=== PATIENT | male | born 1945 | race Hispanic/Latino ===

== ENCOUNTER 2016-08-26 22:22 | Emergency (ER) | payer OTHER, MEDICARE ==
[2016-08-26 22:22] VITALS: BMI 31.9
[2016-08-26 23:21] LABS: BASO % 0.6 % (0.0-2.0); EOS # 0.2 K/uL (0.0-0.7); EOS % 2.8 % (0.0-4.0); HEMATOCRIT 39.8 % (35.0-51.0); LYMPH # 1.6 K/uL (1.0-4.3); LYMPH % 25.4 % (20.0-40.0); MEAN CELL VOLUME 91.4 fL (80.0-94.0); MEAN CORPUSCULAR HEMOGLOBIN 30.3 pg (27.0-31.0); MEAN CORPUSCULAR HGB CONC 33.1 g/dL (33.0-37.0); MEAN PLATELET VOLUME 7.2 fL (7.2-11.7); MONO # 0.7 K/uL (0.0-0.8); MONO % 11.8 % (0.0-10.0); RED CELL DISTRIBUTION WIDTH 12.6 % (11.5-14.5); WHITE BLOOD COUNT 6.3 K/uL (4.8-10.8)
[2016-08-26 23:27] LABS: CHLORIDE 98 mmol/L (98-107)
[2016-08-26 23:28] LABS: SODIUM 140 mmol/L (132-148)
[2016-08-26 23:30] LABS: ALB/GLOB RATIO 1.4 (1.0-2.1); ALKALINE PHOSPHATASE 63 U/L (38-126); ALT/SGPT 24 U/L (21-72); AST/SGOT 21 U/L (17-59); BILIRUBIN,TOTAL 0.3 mg/dL (0.2-1.3); BLOOD UREA NITROGEN 12 mg/dL (9-20); CALCIUM 8.6 mg/dl (8.6-10.4); CARBON DIOXIDE 29 mmol/L (22-30); GFR AFRICAN-AMERICAN > 60; GLUCOSE,RANDOM 98 mg/dL (75-110); TOTAL PROTEIN 6.8 g/dL (6.3-8.3)
--- NOTE | 2016-08-27 01:03 | C.PDOC ---
History Of Present Illness 71 year old patient presents to the ED complaining of shortness of breath. Patient states he woke up from his sleep, with headache and feeling short of breath and unable to breath through his nose. His also notes his voice is deeper than usual. By the time the patient arrived to the ED, the symptoms resolved. Patient denies fever, chest pain or cough. Patient's reports patient has an extensive psych history and he frequently has nightmares that make him combative when he wakes up. Time Seen by Provider: 08/26/16 23:11 Chief Complaint (Nursing): Shortness Of Breath History Per: Patient History/Exam Limitations: no limitations Onset/Duration Of Symptoms: Hrs (tonight) Current Symptoms Are (Timing): Still Present Exacerbating Factor(s): Laying Flat Severity: Mild Recent travel outside of the [place]: No Past Medical History Reviewed: Historical Data, Nursing Documentation, Vital Signs Vital Signs: Last Vital Signs Temp 97.7 F 08/27/16 01:08 Pulse 53 L 08/27/16 01:08 Resp 12 08/27/16 01:08 BP 149/89 08/27/16 01:08 Pulse Ox 97 08/27/16 02:28 - Medical History PMH: Anxiety, Arthritis (LBP), Benign Prostatic Hyperplasia, COPD, Depression, Emphysema, HTN, Hypercholesterolemia, Kidney Stones, Paranoia, Pneumonia, Post Traumatic Stress Disorder, Chronic Kidney Disease, Schizophrenia Surgical History: Coronary Stent, Endoscopy - [facility] Procedures CENTRAL VENOUS CATHETER PLACEMENT WITH GUIDANCE (11/30/14) COLONOSCOPY (12/02/12) DX ULTRASOUND-HEART (07/03/14) INDIVID PSYCHOTHERAP NEC (08/12/14) INSERT INDWELLING CATH (11/08/14) OTHER GROUP THERAPY (08/12/14) PSYCHIAT DRUG THERAP NEC (08/12/14) Family History: States: Unknown Family Hx - Social History Hx Tobacco Use: No Hx Alcohol Use: No Hx Substance Use: No - Immunization History Hx Tetanus Toxoid Vaccination: Yes Hx Influenza Vaccination: Yes (02/2016) Hx Pneumococcal Vaccination: Yes (2014) Review Of Systems Except As Marked, All Systems Reviewed And Found Negative. Constitutional: Negative for: Fever Cardiovascular: Negative for: Chest Pain Respiratory: Positive for: Shortness of Breath. Negative for: Cough Physical Exam - Physical Exam Appears: Non-toxic, No Acute Distress Skin: Warm, Dry Head: Atraumatic, Normacephalic Eye(s): bilateral: Normal Inspection, PERRL, EOMI Nose: Normal Oral Mucosa: Moist Neck: Normal ROM, Supple Chest: Symmetrical Cardiovascular: Rhythm Regular Respiratory: Normal Breath Sounds, No Rales, No Rhonchi, No Wheezing Gastrointestinal/Abdominal: Soft, No Tenderness Back: Normal Inspection, No CVA Tenderness Extremity: Normal ROM Neurological/Psych: Oriented x3, Normal Speech, Normal Cognition Gait: Steady ED Course And Treatment - Laboratory Results Result Diagrams: 08/26/16 23:17 08/26/16 23:17 ECG: Interpreted By Me, Viewed By Tn ECG Rhythm: Sinus Rhythm, 1st Degree HB Rate From EC (bpm) O2 Sat by Pulse Oximetry: 97 (RA) Pulse Ox Interpretation: Normal - Radiology CXR: Interpreted by Me, Viewed By Tn CXR Interpretation: Yes: No Acute Disease - CT Scan/US Head CT Other Rad Studies (CT/US): Read By Radiologist (Ashley Ireland MD), Radiology Report Reviewed CT/US Interpretation: EXAM: CT Head Without Intravenous Contrast. CLINICAL HISTORY: 71 years old, male; Pain; Headache and other: R/O bleed code stroke. TECHNIQUE: Axial computed tomography images of the head/brain without intravenous contrast. This CT exam. was performed using one or more of the following dose reduction techniques: automated exposure. control, adjustment of the mA and/or kV according to patient size, and/or use of iterative. reconstruction technique. COMPARISON: None. FINDINGS: Brain: No acute intracranial hemorrhage. Age-appropriate periventricular white matter disease. No. edema. Ventricles: Age-appropriate ventriculomegaly. Bones: No acute displaced fracture. Sinuses: Unremarkable as visualized. No acute sinusitis. Mastoid air cells: Unremarkable as visualized. No mastoid effusion. IMPRESSION : No acute intracranial hemorrhage, or suspicious mass effect. Progress Note: Plan: -Labs. -Head CT. -EKG. -Chest XR Medical Decision Making Medical Decision Making: Pt remained stable in the ED PaO2 normal, lung clear no indication of PE Results discussed with pt and Plan dc home Disposition - Disposition Referrals: Nicolasa Gonzalez MD [Staff Provider] - Disposition: HOME/ ROUTINE Disposition Time: 01:02 Condition: GOOD Additional Instructions: Take all usual meds Follow up with dr Gonzalez Instructions: Dyspnea (ED) - Clinical Impression Clinical Impression: Dyspnea, Headache - Scribe Statement The provider has reviewed the documentation as recorded by the Scribe Marcia Call Provider Attestation: All medical record entries made by the Benitoibe were at my direction and personally dictated by me. I have reviewed the chart and agree that the record accurately reflects my personal performance of the history, physical exam, medical decision making, and the department course for this patient. I have also personally directed, reviewed, and agree with the discharge instructions and disposition.
[2016-08-27 01:15] VITALS: BP 149/89; PULSE 53; RESP 12; TEMP 97.7; O2SAT 97
--- NOTE | 2016-08-27 08:36 | CT ---
PROCEDURE: CT HEAD WITHOUT CONTRAST. HISTORY: code stroke COMPARISON: Comparison is made to the previous study dated 07/04/2014 TECHNIQUE: Axial computed tomography images were obtained through the head/brain without intravenous contrast. Radiation dose: Total exam DLP = 856.0 mGy-cm. This CT exam was performed using one or more of the following dose reduction techniques: Automated exposure control, adjustment of the mA and/or kV according to patient size, and/or use of iterative reconstruction technique. FINDINGS: HEMORRHAGE: No intracranial hemorrhage. BRAIN: No mass effect or edema. No atrophy or chronic microvascular ischemic changes. VENTRICLES: Unremarkable. No hydrocephalus. CALVARIUM: Unremarkable. PARANASAL SINUSES: Unremarkable as visualized. No significant inflammatory changes. MASTOID AIR CELLS: Unremarkable as visualized. No inflammatory changes. OTHER FINDINGS: None. IMPRESSION: No evidence of acute intracranial hemorrhage intracranial collection mass effect or midline shift. No CT evidence of acute territorial infarct. Preliminary report was submitted by [facility].
--- NOTE | 2016-08-27 12:09 | RAD ---
HISTORY: code stroke COMPARISON: Comparison is made to the previous study dated 07/19/2016 FINDINGS: LUNGS: No active pulmonary disease. PLEURA: No significant pleural effusion identified, no pneumothorax apparent. CARDIOVASCULAR: Normal. OSSEOUS STRUCTURES: No significant abnormalities. VISUALIZED UPPER ABDOMEN: Normal. OTHER FINDINGS: None. IMPRESSION: No active disease.
--- NOTE | 2016-08-27 18:40 | CARD ---
APPROVED REPORT EKG Measurement Heart [id number] <Conclusion> Sinus rhythm with 1st degree AV block Prolonged QT Abnormal ECG
== END 2016-08-27 01:23 | disposition home or self-care (01) ==
LOC: C.ER 22:22
DX: R06.00 Dyspnea, unspecified (principal)

== ENCOUNTER 2017-01-26 12:02 | Emergency (ER) | payer OTHER, MEDICARE ==
[2017-01-26 12:03] VITALS: BMI 31.9
[2017-01-26 12:07] VITALS: TEMP 97.5; O2SAT 96
[2017-01-26] MEDS ORDERED: Sodium Chloride 0.9% 1,000 ML IV ONE (12:27)
[2017-01-26] MEDS ORDERED: Sodium Chloride 0.9% 1,000 ML ONE (12:41)
[2017-01-26 12:44] LABS: BASO % 0.7 % (0.0-2.0); EOS # 0.2 K/uL (0.0-0.7); EOS % 2.4 % (0.0-4.0); HEMATOCRIT 38.5 % (35.0-51.0); LYMPH # 1.6 K/uL (1.0-4.3); LYMPH % 24.7 % (20.0-40.0); MEAN CELL VOLUME 91.2 fL (80.0-94.0); MEAN CORPUSCULAR HEMOGLOBIN 30.9 pg (27.0-31.0); MEAN CORPUSCULAR HGB CONC 33.9 g/dL (33.0-37.0); MEAN PLATELET VOLUME 7.3 fL (7.2-11.7); MONO # 0.7 K/uL (0.0-0.8); MONO % 10.2 % (0.0-10.0); RED CELL DISTRIBUTION WIDTH 12.7 % (11.5-14.5); WHITE BLOOD COUNT 6.5 K/uL (4.8-10.8)
[2017-01-26 12:54] LABS: ALB/GLOB RATIO 1.1 (1.0-2.1); ALKALINE PHOSPHATASE 72 U/L (38-126); ALT/SGPT 25 U/L (21-72); AST/SGOT 18 U/L (17-59); BILIRUBIN,TOTAL 0.5 mg/dL (0.2-1.3); BLOOD UREA NITROGEN 11 mg/dL (9-20); CARBON DIOXIDE 31 mmol/L (22-30); CHLORIDE 99 mmol/L (98-107); GFR AFRICAN-AMERICAN > 60; GLUCOSE,RANDOM 110 mg/dL (75-110); MAGNESIUM 1.9 mg/dL (1.6-2.3); POTASSIUM 3.8 mmol/L (3.6-5.2); SODIUM 141 mmol/L (132-148); TOTAL PROTEIN 6.8 g/dL (6.3-8.3)
[2017-01-26 13:43] LABS: RBC URINE 1 /hpf (0-3); URINE BILIRUBIN NEGATIVE (NEGATIVE); URINE BLOOD NEGATIVE (NEGATIVE); URINE COLOR Yellow (YELLOW); URINE GLUCOSE (UA) NORMAL (Normal); URINE KETONE NEGATIVE (NEGATIVE); URINE LEUKOCYTE ESTERASE NEG Leu/uL (Negative); URINE PROTEIN NEGATIVE (NEGATIVE); URINE UROBILINOGEN NORMAL mg/dL (0.2-1.0); WBC URINE < 1 /hpf (0-5)
--- NOTE | 2017-01-26 14:15 | C.PDOC ---
Time Seen by Provider: 01/26/17 12:17 Chief Complaint (Nursing): Abdominal Pain History Per: Patient Onset/Duration Of Symptoms: Days (about 2 weeks), Intermittent Episodes Current Symptoms Are (Timing): Still Present Severity: Moderate Location Of Pain/Discomfort: Epigastric Quality Of Discomfort: Unable To Describe, Burning, "Pain" Exacerbating Factors: Food Alleviating Factors: None Additional History Per: Prior Records Past Medical History Reviewed: Historical Data, Nursing Documentation, Vital Signs Vital Signs: Last Vital Signs Temp 97.5 F L 01/26/17 12:05 Pulse 58 L 01/26/17 12:05 Resp 18 01/26/17 12:05 BP 152/76 H 01/26/17 12:05 Pulse Ox 96 01/26/17 12:05 - Medical History PMH: Anxiety, Arthritis (LBP), Benign Prostatic Hyperplasia, COPD, Depression, Emphysema, HTN, Hypercholesterolemia, Kidney Stones, Paranoia, Pneumonia, Post Traumatic Stress Disorder, Chronic Kidney Disease, Schizophrenia Surgical History: Coronary Stent, Endoscopy - [facility] Procedures CENTRAL VENOUS CATHETER PLACEMENT WITH GUIDANCE (11/30/14) COLONOSCOPY (12/02/12) DX ULTRASOUND-HEART (07/03/14) INDIVID PSYCHOTHERAP NEC (08/12/14) INSERT INDWELLING CATH (11/08/14) OTHER GROUP THERAPY (08/12/14) PSYCHIAT DRUG THERAP NEC (08/12/14) Family History: States: Unknown Family Hx - Social History Hx Tobacco Use: No Hx Alcohol Use: No Hx Substance Use: No - Immunization History Hx Tetanus Toxoid Vaccination: Yes Hx Influenza Vaccination: Yes (02/2016) Hx Pneumococcal Vaccination: Yes (2014) Review Of Systems Except As Marked, All Systems Reviewed And Found Negative. Constitutional: Negative for: Fever, Weakness Cardiovascular: Negative for: Chest Pain Respiratory: Negative for: Shortness of Breath Gastrointestinal: Negative for: Vomiting, Diarrhea, Melena, Hematochezia, Hematemesis Genitourinary: Negative for: Dysuria Musculoskeletal: Negative for: Neck Pain, Back Pain Skin: Negative for: Rash Neurological: Negative for: Weakness, Numbness ED Course And Treatment - Laboratory Results Result Diagrams: 01/26/17 12:38 01/26/17 12:38 Lab Interpretation: No Acute Changes O2 Sat by Pulse Oximetry: 96 Pulse Ox Interpretation: Normal Progress - Interventions Interventions:: Observation, Intravenous fluid - Medications Administered Intravenous: Antiemetic, Other (PPI) - Data Reviewed Data Reviewed: Lab, Old records - Patient Status Patient status: Mostly improved - Continuity of Care Discussed patient case with:: Patient, ED Nurse - Patient Plan Patient Plan: Discharge, F/U with PCP, Continue present meds Disposition Counseled Patient/Family Regarding: Studies Performed, Diagnosis, Need For Followup, Rx Given - Disposition Referrals: Nicolasa Gonzalez MD [Staff Provider] - Disposition: HOME/ ROUTINE Disposition Time: 14:15 Condition: IMPROVED Additional Instructions: Follow up with your doctor within 1 week for further evaluation and treatment. Return to the ER if you develop fever, vomiting, bloody or black stools, worsening of symptoms or if you have any other concerns. Prescriptions: Famotidine [Pepcid] 20 mg PO BID #30 tab Metoclopramide [Reglan] 1 tab PO TID PRN #15 tab PRN Reason: Nausea/Vomiting Instructions: Gastritis (ED) Forms: [employer] (Nepali) - Clinical Impression Clinical Impression: Abdominal discomfort
[2017-01-26 14:31] VITALS: BP 150/73; PULSE 70; RESP 16
== END 2017-01-26 14:27 | disposition home or self-care (01) ==
LOC: C.ER 12:02
DX: R10.9 Unspecified abdominal pain (principal); N40.0 Benign prostatic hyperplasia without lower urinary tract symptoms; I12.9 Hypertensive chronic kidney disease with stage 1 through stage 4 chronic kidney disease, or unspecified chronic kidney disease; N18.9 Chronic kidney disease, unspecified; Z87.891 Personal history of nicotine dependence
CPT/HCPCS: 80053; 81001; 83690; 83735; 84484; 85025; 96361; 96374; 96375; 99284; C9113; J2765; J7040

== ENCOUNTER 2017-08-23 14:00 | Emergency (ER) | payer OTHER, MEDICARE ==
[2017-08-23 14:00] VITALS: BMI 31.9
[2017-08-23 14:41] VITALS: RESP 20
[2017-08-23 14:57] VITALS: O2SAT 93
[2017-08-23 14:58] LABS: BASO % 0.7 % (0.0-2.0); EOS # 0.2 K/uL (0.0-0.7); EOS % 2.9 % (0.0-4.0); HEMOGLOBIN 13.4 g/dL (12.0-18.0); LYMPH # 1.5 K/uL (1.0-4.3); LYMPH % 23.7 % (20.0-40.0); MEAN CELL VOLUME 92.4 fL (80.0-94.0); MEAN CORPUSCULAR HEMOGLOBIN 31.8 pg (27.0-31.0); MEAN CORPUSCULAR HGB CONC 34.4 g/dL (33.0-37.0); MEAN PLATELET VOLUME 7.9 fL (7.2-11.7); MONO # 0.7 K/uL (0.0-0.8); MONO % 10.4 % (0.0-10.0); NEUT # 4.1 K/uL (1.8-7.0); NEUT % 62.3 % (50.0-75.0); NRBC % 0.1 % (0.0-2.0); RBC 4.21 Mil/uL (4.40-5.90); RED CELL DISTRIBUTION WIDTH 12.7 % (11.5-14.5); WHITE BLOOD COUNT 6.5 K/uL (4.8-10.8)
--- NOTE | 2017-08-23 15:18 | C.PDOC ---
History Of Present Illness 72-year-old male, presents to the emergency department with complaints of increased shortness of breath while walking over the past several weeks. States symptoms worsened, and he has been feeling more short of breath while resting, prompting visit. Associated symptoms include pain in bilateral ribs. He denies fever, nausea/vomiting, diaphoresis, numbness/weakness, leg swelling. Time Seen by Provider: 08/23/17 14:09 Chief Complaint (Nursing): Shortness Of Breath History Per: Patient History/Exam Limitations: no limitations Current Symptoms Are (Timing): Gone (Patient reports that he is currently has no SOB.) Past Medical History Reviewed: Historical Data, Nursing Documentation, Vital Signs Vital Signs: Last Vital Signs Temp 97.8 F 08/23/17 16:03 Pulse 54 L 08/23/17 16:03 Resp 20 08/23/17 16:03 BP 131/72 08/23/17 16:03 Pulse Ox 93 L 08/24/17 18:01 - Medical History PMH: Anxiety, Arthritis (LBP), Benign Prostatic Hyperplasia, COPD, Depression, Emphysema, HTN, Hypercholesterolemia, Kidney Stones, Paranoia, Pneumonia, Post Traumatic Stress Disorder, Chronic Kidney Disease, Schizophrenia Surgical History: Coronary Stent, Endoscopy - [facility] Procedures CENTRAL VENOUS CATHETER PLACEMENT WITH GUIDANCE (11/30/14) COLONOSCOPY (12/02/12) DX ULTRASOUND-HEART (07/03/14) INDIVID PSYCHOTHERAP NEC (08/12/14) INSERT INDWELLING CATH (11/08/14) OTHER GROUP THERAPY (08/12/14) PSYCHIAT DRUG THERAP NEC (08/12/14) Family History: States: No Known Family Hx - Social History Hx Tobacco Use: No Hx Alcohol Use: No Hx Substance Use: No - Immunization History Hx Tetanus Toxoid Vaccination: Yes Hx Influenza Vaccination: Yes (02/2016) Hx Pneumococcal Vaccination: Yes (2014) Review Of Systems Except As Marked, All Systems Reviewed And Found Negative. Cardiovascular: Positive for: Chest Pain Respiratory: Positive for: Shortness of Breath, SOB with Excertion Gastrointestinal: Negative for: Vomiting Musculoskeletal: Negative for: Back Pain, Leg Pain Skin: Negative for: Rash Neurological: Negative for: Weakness, Numbness, Headache, Dizziness Physical Exam - Physical Exam Appears: Non-toxic, No Acute Distress, Other (morbidly obese) Skin: Warm, Dry, No Rash Head: Atraumatic, Normacephalic Eye(s): bilateral: Normal Inspection, PERRL, EOMI Nose: Normal Oral Mucosa: Moist Lips: Normal Appearing Neck: Normal ROM, Supple Chest: Symmetrical, No Tenderness Cardiovascular: Rhythm Regular, No Friction Rub, No Murmur Respiratory: No Accessory Muscle Use, Rales (Bibasilar) Gastrointestinal/Abdominal: Soft, No Tenderness Back: Normal Inspection, No CVA Tenderness Extremity: Normal ROM, No Deformity, No Swelling Neurological/Psych: Oriented x3, Normal Speech, Normal Motor Gait: Steady ED Course And Treatment - Laboratory Results Result Diagrams: 08/23/17 14:55 08/23/17 14:55 O2 Sat by Pulse Oximetry: 93 (RA) Pulse Ox Interpretation: Normal (low normal patient's baseline) Medical Decision Making Medical Decision Making: Plan: * Labs * EKG * Chest X-Ray * Reassess and Disposition On re-exam, the patient reports that he feels well. Patient is ambulatory in the ED with no shortness of breath. Patient reports that he rather go home and does not want admission at this time. Will follow up with his PMD within 1-2 days without fail. Return if worsened. Disposition - Disposition Referrals: Nicolasa Gonzalez MD [Staff Provider] - Disposition: HOME/ ROUTINE Disposition Time: 16:33 Condition: STABLE Additional Instructions: Follow up with the medical doctor/clinic within 1-2 days. Return if wrosened. Prescriptions: Fluticasone/Salmeterol 250/50 [Advair Diskus] 1 puff IH Q12 #100 puff Instructions: Chronic Obstructive Pulmonary Disease (COPD), Including Emphysema Forms: [employer] (Urdu) - Clinical Impression Clinical Impression: COPD (chronic obstructive pulmonary disease) - Scribe Statement The provider has reviewed the documentation as recorded by the Scribe (Jessie Agauyo) All medical record entries made by the Scribe were at my direction and personally dictated by me. I have reviewed the chart and agree that the record accurately reflects my personal performance of the history, physical exam, medical decision making, and the department course for this patient. I have also personally directed, reviewed, and agree with the discharge instructions and disposition.
[2017-08-23 15:19] LABS: ALB/GLOB RATIO 1.2 (1.0-2.1); ALBUMIN 4.3 g/dL (3.5-5.0); ALT/SGPT 13 U/L (21-72); AST/SGOT 32 U/L (17-59); BLOOD UREA NITROGEN 15 mg/dL (9-20); GFR AFRICAN-AMERICAN > 60; GFR NON-AFRICAN AMERICAN > 60
[2017-08-23 15:30] LABS: B-TYPE NATRIURETIC PEPTIDE 129 pg/mL (0-900)
[2017-08-23 16:04] VITALS: BP 131/72; PULSE 54; TEMP 97.8
--- NOTE | 2017-08-23 16:49 | RAD ---
PROCEDURE: CHEST RADIOGRAPH, 1 VIEW HISTORY: SOB COMPARISON: Comparison made with prior study 03/23/2017. FINDINGS: LUNGS: Minor bibasilar atelectasis PLEURA: No pneumothorax or pleural fluid seen. CARDIOVASCULAR: Cardiomegaly. OSSEOUS STRUCTURES: No significant abnormalities. VISUALIZED UPPER ABDOMEN: Normal. OTHER FINDINGS: None. IMPRESSION: Minor bibasilar atelectasis. Cardiomegaly.
--- NOTE | 2017-08-25 21:10 | CARD ---
APPROVED REPORT EKG Measurement Heart [id number] <Conclusion> Sinus bradycardia with 1st degree AV block Possible Inferior infarct, age undetermined Abnormal ECG
== END 2017-08-23 16:45 | disposition home or self-care (01) ==
LOC: C.ER 14:00
DX: J44.9 Chronic obstructive pulmonary disease, unspecified (principal); I10 Essential (primary) hypertension; E78.00 Pure hypercholesterolemia, unspecified; Z87.01 Personal history of pneumonia (recurrent); Z87.891 Personal history of nicotine dependence

== ENCOUNTER 2017-09-20 16:14 | Emergency (ER) | payer OTHER, MEDICARE ==
[2017-09-20 16:14] VITALS: BMI 31.9
[2017-09-20 16:19] VITALS: O2SAT 92
--- NOTE | 2017-09-20 16:47 | RAD ---
PROCEDURE: CHEST RADIOGRAPH, 1 VIEW HISTORY: SOB COMPARISON: Left greater than right. Comparison chest 08/23/2017 FINDINGS: LUNGS: Suspect minor bibasilar atelectasis left greater than right PLEURA: No pneumothorax or pleural fluid seen. CARDIOVASCULAR: Cardiomegaly OSSEOUS STRUCTURES: No significant abnormalities. VISUALIZED UPPER ABDOMEN: Normal. OTHER FINDINGS: None. IMPRESSION: Suspect minor bibasilar atelectasis left greater than right
[2017-09-20 16:48] LABS: BASO # 0.1 K/uL (0.0-0.2); BASO % 0.7 % (0.0-2.0); EOS # 0.1 K/uL (0.0-0.7); EOS % 1.7 % (0.0-4.0); HEMOGLOBIN 12.8 g/dL (12.0-18.0); LYMPH % 28.3 % (20.0-40.0); MEAN CELL VOLUME 92.2 fL (80.0-94.0); MEAN CORPUSCULAR HEMOGLOBIN 31.2 pg (27.0-31.0); MEAN CORPUSCULAR HGB CONC 33.8 g/dL (33.0-37.0); MEAN PLATELET VOLUME 6.9 fL (7.2-11.7); MONO # 0.5 K/uL (0.0-0.8); NEUT # 4.3 K/uL (1.8-7.0); NEUT % 62.3 % (50.0-75.0); RBC 4.1 Mil/uL (4.40-5.90); RED CELL DISTRIBUTION WIDTH 12.8 % (11.5-14.5)
[2017-09-20 17:01] LABS: ALB/GLOB RATIO 1.3 (1.0-2.1); ALBUMIN 3.9 g/dL (3.5-5.0); ALT/SGPT 21 U/L (21-72); AST/SGOT 20 U/L (17-59); BLOOD UREA NITROGEN 17 mg/dL (9-20); CALCIUM 8.9 mg/dl (8.6-10.4); GFR AFRICAN-AMERICAN > 60; GFR NON-AFRICAN AMERICAN 59
--- NOTE | 2017-09-20 17:07 | C.PDOC ---
History Of Present Illness 72 year old male with a history of COPD, schizophrenia, paranoia, depression, hypertension, and hyperlipidemia presents to the emergency department. Patient reports that he was seen in the ED on 08-23-17 for shortness of breath and an exacerbation of his COPD, and he was discharged with an Advair disc. Patient further states he was seen by his PMD "Martha Murphy" who treated him with an antibiotic for a cough which he doesn't remember the name of. Patient states he took the antibiotic for a week that he recently finished the course of. Patient says he is still experiencing a productive cough with phlegm; patient doesn't know the color of the phlegm because he swallows it. Patient cannot be specific when describing his pain, only states "just doesn't feel good". Patient confirms dizziness, lightheadedness, and cough. Patient denies any fever, chills , chest pain, or shortness of breath. Time Seen by Provider: 09/20/17 16:21 Chief Complaint (Nursing): Dizziness/Lightheaded History/Exam Limitations: no limitations Onset/Duration Of Symptoms: Other (1 month) Current Symptoms Are (Timing): Still Present Past Medical History Reviewed: Historical Data, Nursing Documentation, Vital Signs Vital Signs: Last Vital Signs Temp 98.4 F 09/20/17 16:16 Pulse 76 09/20/17 16:16 Resp 20 09/20/17 16:16 BP 121/70 09/20/17 16:16 Pulse Ox 92 L 09/20/17 17:33 - Medical History PMH: Anxiety, Arthritis (LBP), Benign Prostatic Hyperplasia, COPD, Depression, Emphysema, HTN, Hypercholesterolemia, Kidney Stones, Paranoia, Pneumonia, Post Traumatic Stress Disorder, Chronic Kidney Disease, Schizophrenia Surgical History: Coronary Stent, Endoscopy - [facility] Procedures CENTRAL VENOUS CATHETER PLACEMENT WITH GUIDANCE (11/30/14) COLONOSCOPY (12/02/12) DX ULTRASOUND-HEART (07/03/14) INDIVID PSYCHOTHERAP NEC (08/12/14) INSERT INDWELLING CATH (11/08/14) OTHER GROUP THERAPY (08/12/14) PSYCHIAT DRUG THERAP NEC (08/12/14) Family History: States: Unknown Family Hx - Social History Hx Tobacco Use: No Hx Alcohol Use: No Hx Substance Use: No - Immunization History Hx Tetanus Toxoid Vaccination: Yes Hx Influenza Vaccination: Yes (02/2016) Hx Pneumococcal Vaccination: Yes (2014) Review Of Systems Constitutional: Negative for: Fever, Chills Cardiovascular: Negative for: Chest Pain Respiratory: Positive for: Cough (productive), Sputum. Negative for: Shortness of Breath Neurological: Positive for: Dizziness, Other (lightheadedness) Physical Exam - Physical Exam Appears: Non-toxic, No Acute Distress Cardiovascular: Rhythm Regular Respiratory: Normal Breath Sounds, No Rales, No Rhonchi, No Wheezing, Other (no respiratory distress) Gastrointestinal/Abdominal: Normal Exam, Soft, No Tenderness ED Course And Treatment - Laboratory Results Result Diagrams: 09/20/17 16:45 09/20/17 16:45 Lab Interpretation: No Acute Changes ECG: Interpreted By Me ECG Rhythm: Sinus Rhythm, 1st Degree HB ECG Interpretation: No Acute Changes O2 Sat by Pulse Oximetry: 92 (RA) Pulse Ox Interpretation: Abnormal - Radiology CXR: Viewed By Me, Read By Radiologist CXR Interpretation: Yes: No Acute Disease, Other (bibasilar atelectasis) Progress Note: Plan: EKG. CMP. CBC. CXR One View Reevaluation Time: 17:48 Reassessment Condition: Unchanged (Patient is in no distress. Remains comfortable.) - Physician Consult Information Time Consulting Physician Contacted: 17:48 Physician Contacted: Lesley Murphy Outcome Of Conversation: She knows the patient well. He was treated with antibiotics several weeks ago. She suggests treatment with Zithromax and she will see him in the office next week. Disposition Counseled Patient/Family Regarding: Studies Performed, Diagnosis, Need For Followup, Rx Given - Disposition Referrals: Lesley Murphy MD [Staff Provider] - Disposition: HOME/ ROUTINE Disposition Time: 17:50 Condition: STABLE Prescriptions: Azithromycin [Zithromax] 250 mg PO DAILY #6 tab Instructions: Cough, Adult (DC) Forms: [employer] (Nicaraguan) - Clinical Impression Clinical Impression: COPD (chronic obstructive pulmonary disease), URI (upper respiratory infection) - Scribe Statement The provider has reviewed the documentation as recorded by the Scribe (Kilo Owusu) All medical record entries made by the Scribe were at my direction and personally dictated by me. I have reviewed the chart and agree that the record accurately reflects my personal performance of the history, physical exam, medical decision making, and the department course for this patient. I have also personally directed, reviewed, and agree with the discharge instructions and disposition.
[2017-09-20 18:13] VITALS: BP 113/74; PULSE 68; RESP 18; TEMP 99.1
== END 2017-09-20 18:13 | disposition home or self-care (01) ==
LOC: C.ER 16:14
DX: J44.9 Chronic obstructive pulmonary disease, unspecified (principal); J06.9 Acute upper respiratory infection, unspecified; Z87.891 Personal history of nicotine dependence

== ENCOUNTER 2017-12-24 06:34 | Day surgery (SDC) | payer OTHER, MEDICARE ==
[2017-12-23 10:39] VITALS: BMI 33.4
[2017-12-24] MEDS ORDERED: Propofol 10 mg/ml Inj (20 ML) ONE (07:57)
--- NOTE | 2017-12-24 08:15 | CP.SDSHP ---
Same Day Surgery H & P - History Proposed Procedure: colonoscopy Pre-Op Diagnosis: blood in stool - Previous Medical/Surgical History Cardiac: Hypertension, ASHD/CAD Comments: schizophrenia. BPH - Allergies Allergies: Allergies phenobarbital Allergy (Verified 09/20/17 16:18) RASH - Current Medications Current Medications: reviewed, per reconciliation - Physical Exam General Appearance: wdwn nad Vital Signs: Vital Signs 12/24/17 12/24/17 06:45 07:52 Temperature 97 F L 97 F L Pulse Rate 68 62 Respiratory 19 19 Rate Blood Pressure 140/81 139/83 O2 Sat by Pulse 97 96 Oximetry Mental Status: Alert & Oriented x3 Heart: WNL Lungs: WNL GI: WNL - {Optional Preform as Required} Abdomen: WNL - Impression Impression: diverticulosis, blood in stool Pt. Evaluated Today:Candidate for Anesthesia & Procedure: Yes - Date & Time Date: 12/24/17 Time: 08:15 Short Stay Discharge - Short Stay Discharge Admitting Diagnosis/Reason for Visit: DIVERTICULITIS Disposition: HOME/ ROUTINE
[2017-12-24 08:42] VITALS: TEMP 98.4; O2SAT 97
[2017-12-24 09:50] VITALS: BP 132/77; PULSE 57; RESP 15
== END 2017-12-24 09:40 | disposition home or self-care (01) ==
LOC: C.ENDO 06:34
PROVIDERS: ATTEND Internal Medicine Gastroenterology
DX: K57.90 Diverticulosis of intestine, part unspecified, without perforation or abscess without bleeding (principal); K64.8 Other hemorrhoids
CPT/HCPCS: 45378; J2704

== ENCOUNTER 2018-07-16 14:22 | Outpatient (CLI) | payer BC, MEDICARE | END 2018-07-16 14:23 | disposition home or self-care (01) | LOC: C.LAB 14:22 | DX: N39.0 Urinary tract infection, site not specified (principal) ==

== ENCOUNTER 2018-08-11 10:45 | Outpatient (CLI) | payer OTHER, MEDICARE | END 2018-08-11 10:46 | disposition home or self-care (01) | LOC: C.CTH 10:45 ==

== ENCOUNTER 2018-08-17 14:32 | Emergency (ER) | payer BC, MEDICARE ==
[2018-08-17 14:32] VITALS: BMI 33.4
[2018-08-17 14:43] VITALS: BP 135/77; PULSE 67; RESP 18; TEMP 98; O2SAT 94
--- NOTE | 2018-08-17 15:33 | C.PDOC ---
History Of Present Illness 73 year old male presents to ED for evaluation of gait. Patient was referred from Psych. Patient has a PMHx of Alzheimer's and dementia. Patient denies any new numbness or weakness. Time Seen by Provider: 08/17/18 15:28 Chief Complaint (Nursing): Lower Extremity Problem/Injury History Per: Patient History/Exam Limitations: no limitations Onset/Duration Of Symptoms: Unknown Current Symptoms Are (Timing): Still Present Past Medical History Reviewed: Historical Data, Nursing Documentation, Vital Signs Vital Signs: Last Vital Signs Temp 98 F 08/17/18 14:39 Pulse 67 08/17/18 14:39 Resp 18 08/17/18 14:39 BP 135/77 08/17/18 14:39 Pulse Ox 94 L 08/17/18 14:39 - Medical History PMH: Anxiety, Arthritis, Benign Prostatic Hyperplasia, COPD, Depression, Emphysema, Gastritis, HTN, Hypercholesterolemia, Hypothyroidism, Kidney Stones, Paranoia, Pneumonia, Post Traumatic Stress Disorder, Chronic Kidney Disease, Schizophrenia Denies: HIV Surgical History: Coronary Stent, Endoscopy - [facility] Procedures CENTRAL VENOUS CATHETER PLACEMENT WITH GUIDANCE (11/30/14) COLONOSCOPY (12/02/12) DX ULTRASOUND-HEART (07/03/14) INDIVID PSYCHOTHERAP NEC (08/12/14) INSERT INDWELLING CATH (11/08/14) OTHER GROUP THERAPY (08/12/14) PSYCHIAT DRUG THERAP NEC (08/12/14) Family History: States: Unknown Family Hx - Social History Hx Tobacco Use: No Hx Alcohol Use: No Hx Substance Use: No - Immunization History Hx Tetanus Toxoid Vaccination: Yes Hx Influenza Vaccination: Yes (02/2016) Hx Pneumococcal Vaccination: Yes (2014) Review Of Systems Constitutional: Negative for: Fever, Chills, Weakness Neurological: Negative for: Weakness, Numbness, Dizziness Physical Exam - Physical Exam Appears: Non-toxic, No Acute Distress, Other (mask-like face) Skin: Normal Color, Warm, Dry Head: Atraumatic, Normacephalic Neck: Normal ROM, Supple Chest: Symmetrical, No Deformity Respiratory: No Accessory Muscle Use Extremity: No Tenderness (knees or ankles) Neurological/Psych: Oriented x3, Normal Speech, No Other (tremor) Gait: Other (magnetic) ED Course And Treatment O2 Sat by Pulse Oximetry: 94 (in RA) Progress Note: Patient given Tylenol PO. Discussed with patient's , who works as the hyster machine operator at [employer] because the patient left without his discharge papers or pain medications. Medical Decision Making Medical Decision Making: painless gait ? magnetic gait c/w Parkinson's/Dementia? f/u with Dr. Gonzalez Seeing psych regularly/today Disposition Doctor Will See Patient In The: Office Counseled Patient/Family Regarding: Studies Performed, Diagnosis - Disposition Referrals: Lesley Murphy MD [Staff Provider] - Nicolasa Gonzalez MD [Staff Provider] - Disposition: HOME/ ROUTINE Disposition Time: 15:33 Condition: GOOD Additional Instructions: occasional Tylenol/Motrin as needed Follow-up with Dr. Gonzalez for further evalation of your leg pains/gait abnormalities. Magnetic gait is typical of Parkinson's Dementia. Instructions: Knee Pain (DC) Forms: [facility] (Malagasy) - Clinical Impression Clinical Impression: Leg pain, bilateral - Scribe Statement The provider has reviewed the documentation as recorded by the Scribe (Aidee Mata) All medical record entries made by the Scribe were at my direction and personally dictated by me. I have reviewed the chart and agree that the record accurately reflects my personal performance of the history, physical exam, medical decision making, and the department course for this patient. I have also personally directed, reviewed, and agree with the discharge instructions and disposition.
== END 2018-08-17 15:40 | disposition home or self-care (01) ==
LOC: C.ER 14:32
DX: M79.605 Pain in left leg (principal); M79.604 Pain in right leg

== ENCOUNTER 2018-09-04 10:15 | Outpatient (CLI) | payer BC, MEDICARE | END 2018-09-04 10:16 | disposition home or self-care (01) | LOC: C.LAB 10:15 | DX: D64.9 Anemia, unspecified (principal); D53.8 Other specified nutritional anemias; I11.9 Hypertensive heart disease without heart failure; K76.9 Liver disease, unspecified; I25.10 Atherosclerotic heart disease of native coronary artery without angina pectoris; N40.1 Benign prostatic hyperplasia with lower urinary tract symptoms; E55.9 Vitamin D deficiency, unspecified ==

== ENCOUNTER 2018-09-25 11:53 | Outpatient (CLI) | payer OTHER, MEDICARE, BC | END 2018-09-25 11:54 | disposition home or self-care (01) | LOC: C.MRIC 11:53 | DX: M23.42 Loose body in knee, left knee (principal); M23.41 Loose body in knee, right knee ==